=== PATIENT | female | born 1970 | race Caucasian/White ===

== ENCOUNTER 2019-09-24 08:11 | Inpatient (IN) | payer MEDICAID ==
[~2019-09-24] VITALS: Ht 170.2 cm; Wt 71.4 kg
[2019-09-24] MEDS ORDERED: normal saline 1000ML IV soln IVB ONE (08:25)
--- NOTE | 2019-09-24 08:35 | NUR ---
PT TO CT
[2019-09-24 08:52] LABS: BASOPHILS # (AUTO) 0.1 X10'3 (0-0.2); BASOPHILS % (AUTO) 0.4 % (0-1); EOSINOPHILS # (AUTO) 0.1 X10'3 (0-0.9); EOSINOPHILS % (AUTO) 0.8 % (0-6); HEMOGLOBIN 12.2 g/dl (12.0-16.0); LYMPHOCYTES # (AUTO) 2.1 X10'3 (1.1-4.8); LYMPHOCYTES % (AUTO) 15.2 % (21-51); MEAN CORPUSCULAR HEMOGLOBIN 27.6 PG (27.0-31.0); MEAN CORPUSCULAR HGB CONC 32.2 g/dL (33.0-36.5); MEAN CORPUSCULAR VOLUME 85.8 FL (78-98); MEAN PLATELET VOLUME 8.6 FL (7.4-10.4); MONOCYTES % (AUTO) 14.4 % (2-12); NEUTROPHILS # (AUTO) 9.3 X10'3 (1.8-7.7); NEUTROPHILS % (AUTO) 69.2 % (42-75); PLATELET COUNT 425 X10'3 (140-440); RED BLOOD COUNT 4.43 X10'6 (4.20-5.60); RED CELL DISTRIBUTION WIDTH 14.8 % (11.5-14.5); WHITE BLOOD COUNT 13.5 X10'3 (4.5-11.0)
[2019-09-24 09:09] LABS: ALANINE AMINOTRANSFERASE 12 U/L (12-78); ALBUMIN/GLOBULIN RATIO 0.4 (1.1-1.5); ALKALINE PHOSPHATASE 238 IU/L (46-116); ANION GAP 16 (8-16); ASPARTATE AMINO TRANSFERASE 10 U/L (10-37); BILIRUBIN,TOTAL 0.6 MG/DL (0.1-1.0); BLOOD UREA NITROGEN 33 MG/DL (7-18); BUN/CREATININE RATIO 23.9 (6.6-38.0); CALCIUM 10.3 MG/DL (8.5-10.1); CHLORIDE 98 MMOL/L (99-107); CREATININE 1.38 MG/DL (0.40-0.90); ETHANOL < 0.010 GM/DL (0.0-0.010); POTASSIUM 4.4 MMOL/L (3.5-5.1); SODIUM 135 MMOL/L (135-145); TOTAL CARBON DIOXIDE 21.5 MMOL/L (24-32); TOTAL PROTEIN 7.7 G/DL (6.4-8.2); TROPONIN I < 0.04 NG/ML (0.0-0.05); eGFR 40 ML/MIN
[2019-09-24 09:12] LABS: CLARITY,URINE CLOUDY (Clear); COLOR,URINE YELLOW (Yellow); GLUCOSE, URINE >=1000 mg/dl (Neg); KETONES,URINE >=80 mg/dl (Neg); LEUKOCYTE ESTERASE ,URINE SMALL (Neg); NITRITES, URINE POSITIVE (Neg); OCCULT BLOOD,URINE MODERATE (Neg); PROTEIN,URINE 30 mg/dl (Neg); UROBILINOGEN,URINE 0.2 E.U/dL (0.2-1.0)
[2019-09-24 09:17] LABS: URINE AMPHETAMINE SCREEN NEGATIVE (Neg); URINE BARBITUATE SCREEN NEGATIVE (Neg); URINE BENZODIAZEPINES SCREEN NEGATIVE (Neg); URINE CANNABINOID SCREEN NEGATIVE (Neg); URINE COCAINE SCREEN NEGATIVE (Neg); URINE METHADONE SCREEN NEGATIVE (Neg); URINE OPIATE SCREEN NEGATIVE (Neg); URINE PHENCYCLIDINE SCREEN NEGATIVE (Neg)
[2019-09-24 09:18] LABS: UA COLLECTION TYPE CLN CATCH MIDSTREAM
[2019-09-24 09:19] LABS: BACTERIA,URINE 2+ /HPF (Neg); SQUAMOUS EPITHELIAL CELL,UR MODERATE /LPF (FEW); WBC,URINE TNTC /HPF (0-4)
[2019-09-24 09:19] LABS: GLUCOSE 484 MG/DL (70-104)
[2019-09-24 09:20] LABS: RBC,URINE 0-2 /HPF (0-2)
[2019-09-24] MEDS ORDERED: CefTRIAXone 2gm/D5W 50ml 50 ML IV ONE (09:30)
[2019-09-24] MEDS ORDERED: magnesium Cl slow-release 64mg tablet PO PRN (10:05)
[2019-09-24] MEDS ORDERED: ondansetron/PF 4mg/2ml inj IV PRN (10:05)
[2019-09-24] MEDS ORDERED: potassium CL 10mEq/100ml bag 100 ML IV PRN ×2 (10:05)
[2019-09-24] MEDS ORDERED: acetaminophen 325mg tablet PO PRN (10:05)
[2019-09-24] MEDS ORDERED: mag hydrox/Alum hydrox/simeth 30ml oral suspension PO PRN (10:05)
[2019-09-24] MEDS ORDERED: potassium Cl 20 mEq SR tablet PO PRN ×2 (10:05)
[2019-09-24] MEDS ORDERED: magnesium 2GM in 50ml NS 50 ML IV PRN (10:05)
[2019-09-24] MEDS ORDERED: magnesium 4gm in 100ml NS 100 ML IV PRN (10:05)
[2019-09-24] MEDS: normal saline 1000ml 1,000 ML IV SCH ×2 (10:33→22:27)
[2019-09-24 10:40] LABS: TOTAL CELLS COUNTED 100
[2019-09-24 10:43] LABS: PLATELET ESTIMATE NORMAL
[2019-09-24 10:44] LABS: TOXIC GRANULATION 1+; TOXIC VACUOLATION FEW
--- NOTE | 2019-09-24 10:49 | NUR ---
Patient in room ED 9. I have received report from Chantel and had the opportunity to ask questions and assume patient care.
[2019-09-24] MEDS ORDERED: BRIM5DRO2 RIGHTEYE (11:00)
[2019-09-24] MEDS ORDERED: PIL2OS RIGHTEYE (11:00)
[2019-09-24] MEDS ORDERED: CYCL-1 PO (11:00)
[2019-09-24] MEDS ORDERED: PRED5DRO23 RIGHTEYE (11:00)
[2019-09-24] MEDS ORDERED: METF-950 PO (11:00)
[2019-09-24] MEDS ORDERED: FLUT16SP26 NS (11:00)
[2019-09-24] MEDS ORDERED: FEXO-62 PO (11:00)
[2019-09-24] MEDS ORDERED: GLIP5TAB13 PO (11:00)
[2019-09-24 11:20] VITALS: BP 156/87
--- NOTE | 2019-09-24 12:25 | NUR ---
Salty [id number] Re: Collette Noel Blood sugar 447 can we start hyperglycemic protocol?
[2019-09-24] MEDS ORDERED: dextrose 50%-water 50ml dispensing syringe IV PRN ×2 (12:45)
[2019-09-24] MEDS ORDERED: glucagon, human recombinant 1mg kit SUBCUT PRN (12:45)
[2019-09-24] MEDS ORDERED: insulin regular, human U-100 3ml vial - multi-dose SQ SCH (12:45)
[2019-09-24] MEDS ORDERED: MESSAGE TO PHARMACY PO ONE (12:45)
[2019-09-24] MEDS ORDERED: dextrose ORAL solution 15 GM/59 ML bottle PO PRN ×2 (12:45)
[2019-09-24 13:19] LABS: HEMOGLOBIN A1C 12.9 % (4.5-6.2)
[2019-09-24] MEDS: insulin Lispro (HumaLOG) vial - multi-dose SQ SCH ×3 (13:58→21:26)
[2019-09-24 18:00] VITALS: BP 155/81
--- NOTE | 2019-09-24 18:20 | NUR ---
Problems reprioritized. Patient report given, questions answered & plan of care reviewed with Camryn.
--- NOTE | 2019-09-24 18:21 | NUR ---
Patient in room [facility] 357. I have received report from Salty METZGER and had the opportunity to ask questions and assume patient care.
[2019-09-24] MEDS: K and/or MAG REPLACEMENT MC SCH (20:00)
--- NOTE | 2019-09-24 20:42 | NUR ---
Patient very concerned about her pink wallet. Went thru patients belongings with patient and no pink wallet. Blue wallet with $16 in pierre, a debit card, ID and a [employer] card. She said she takes this wallet with her to [employer] when she shops. Patient very confused at the moment.
[2019-09-24 20:59] VITALS: BP_SYST 111; BP_SYST 155; BP_SYST 159; BP_DIAS 66; BP_DIAS 79; BP_DIAS 81
[2019-09-24] MEDS ORDERED: insulin glargine (Lantus) pen - multi-dose SQ SCH (21:00)
[2019-09-24] MEDS: ibuprofen 200mg tablet PO PRN (22:27)
[2019-09-25] VITALS: BP 141/74
--- NOTE | 2019-09-25 01:11 | NUR ---
Patient says she is type 2 DM not type 1. Patient takes metformin at home she states.
--- NOTE | 2019-09-25 01:30 | NUR ---
Called MD due to blood sugar 415. No new orders at this time.
[2019-09-25 06:06] LABS: BASOPHILS # (AUTO) 0.1 X10'3 (0-0.2); BASOPHILS % (AUTO) 0.5 % (0-1); EOSINOPHILS # (AUTO) 0.2 X10'3 (0-0.9); EOSINOPHILS % (AUTO) 2.1 % (0-6); HEMATOCRIT 34.8 % (35.0-45.0); HEMOGLOBIN 11.2 g/dl (12.0-16.0); LYMPHOCYTES # (AUTO) 2.6 X10'3 (1.1-4.8); LYMPHOCYTES % (AUTO) 22.6 % (21-51); MEAN CORPUSCULAR HEMOGLOBIN 27.8 PG (27.0-31.0); MEAN CORPUSCULAR HGB CONC 32.3 g/dL (33.0-36.5); MEAN CORPUSCULAR VOLUME 86.1 FL (78-98); MEAN PLATELET VOLUME 8.6 FL (7.4-10.4); MONOCYTES # (AUTO) 2.2 X10'3 (0-0.9); MONOCYTES % (AUTO) 18.8 % (2-12); NEUTROPHILS # (AUTO) 6.4 X10'3 (1.8-7.7); PLATELET COUNT 344 X10'3 (140-440); RED BLOOD COUNT 4.04 X10'6 (4.20-5.60); RED CELL DISTRIBUTION WIDTH 14.5 % (11.5-14.5); WHITE BLOOD COUNT 11.5 X10'3 (4.5-11.0)
--- NOTE | 2019-09-25 06:16 | NUR ---
Problems reprioritized. Patient report given, questions answered & plan of care reviewed with Kyleigh METZGER.
[2019-09-25 06:26] LABS: ALBUMIN 1.7 G/DL (3.4-5.0); ANION GAP 10 (8-16); BLOOD UREA NITROGEN 27 MG/DL (7-18); BUN/CREATININE RATIO 23.5 (6.6-38.0); CHLORIDE 101 MMOL/L (99-107); CREATININE 1.15 MG/DL (0.40-0.90); GLUCOSE 424 MG/DL (70-104); MAGNESIUM 1.6 MG/DL (1.5-2.4); POTASSIUM 3.8 MMOL/L (3.5-5.1); SODIUM 135 MMOL/L (135-145); TOTAL CARBON DIOXIDE 24.3 MMOL/L (24-32); eGFR 50 ML/MIN
--- NOTE | 2019-09-25 06:33 | NUR ---
Patient in room [facility] 357. I have received report from Camryn METZGER and had the opportunity to ask questions and assume patient care.
[2019-09-25 07:00] VITALS: BP 169/85
[2019-09-25] MEDS: ibuprofen 200mg tablet PO PRN (07:33)
[2019-09-25] MEDS: normal saline 1000ml 1,000 ML IV SCH (07:33)
[2019-09-25] MEDS: K and/or MAG REPLACEMENT MC SCH (08:00)
[2019-09-25] MEDS ORDERED: CefTRIAXone/D5W-Rocephin 1gm 50 ML IV SCH (08:00)
--- NOTE | 2019-09-25 08:12 | NUR ---
PAGER ID: [phone] MESSAGE: Dr. Thomas patient Collette Noel blood sugar is 411, I will give her insulin, also med-rec needs to be done thank you. Kyleigh [phone] surgical
[2019-09-25] MEDS: insulin Lispro (HumaLOG) vial - multi-dose SQ SCH ×2 (08:22→13:33)
[2019-09-25] MEDS ORDERED: cyclobenzaprine 10mg tablet PO PRN (08:50)
[2019-09-25] MEDS ORDERED: INDO50CA96 PO (09:16)
[2019-09-25 10:00] VITALS: BP 133/67
[2019-09-25] MEDS ORDERED: brimonidine 0.2% 5 ML ophthalmic drops RIGHTEYE SCH (10:00)
[2019-09-25] MEDS ORDERED: timolol 0.5% ophthalmic solution 5ml bottle RIGHTEYE SCH (10:00)
[2019-09-25] MEDS ORDERED: prednisoLONE acetate 1% ophth susp 5ml RIGHTEYE SCH (10:00)
--- NOTE | 2019-09-25 11:22 | NUR ---
DM consult: Pt with T2DM, current A1c is 12.9%. Per RN notes pt states she takes Metformin. Blood sugars in the 400s since admission, currently on hyperglycemic protocol and CHO controlled diet. Per physical assessment pt A/O x 4 however confused and forgetful about what topic she is discussing. Pt would benefit from DM education once pt more alert and oriented. Addendum: 09/25/19 at [address] Amended: Links added.
--- NOTE | 2019-09-25 11:23 | NUR ---
DM consult: Pt with T2DM, current A1c is 12.9%. Per RN notes pt states she takes Metformin. Blood sugars in the 400s since admission, currently on hyperglycemic protocol and CHO controlled diet. Per physical assessment pt A/O x 4 however confused and forgetful about what topic she is discussing. Pt would benefit from DM education once pt more alert and oriented. Will continue to follow. Addendum: 09/25/19 at [address] Amended: Links added.
[2019-09-25 11:49] VITALS: BP_SYST 133; BP_SYST 140; BP_DIAS 53; BP_DIAS 58; BP_DIAS 67
[2019-09-25] MEDS ORDERED: METF-950 PO (12:48)
[2019-09-25] MEDS ORDERED: AMOX-419 PO (12:49)
--- NOTE | 2019-09-25 16:45 | NUR ---
Patient discharged at this time with [facility] transportation. She had a walker delivered by [email or web address]. She said she was missing her wallet and glasses but these could be at her house because she was found down in urine. Meds e-scripted to [facility] placer
[2019-09-25] MEDS ORDERED: lactobacillus rhamnosus 10,000 MMU CELLS/CAPSULE PO SCH (20:00)
[2019-09-25] MEDS ORDERED: non-formulary drug (Brimonidine Tartrate/Timolol (Combigan Eye Drops) 1 DROP) RIGHTEYE SCH (20:00)
[2019-09-25] MEDS ORDERED: pilocarpine 2% ophthalmic drops 15ml RIGHTEYE SCH (21:00)
--- NOTE | 2019-09-26 09:42 | NUR ---
F/u for DM consult: Pt discharged prior to RD being available for bedside visit. Written DM education with RD contact information mailed to patient's home address found in EMR. Addendum: 09/26/19 at [address] Amended: Links added.
== END 2019-09-25 16:50 | disposition home health service (06) | DRG 469 ==
LOC: ER 08:11 → ED HOLD 10:01 → SUR 3N 11:01
PROVIDERS: ADMIT Internal Medicine; ATTEND Internal Medicine
DX: N17.9 Acute kidney failure, unspecified (principal); E11.65 Type 2 diabetes mellitus with hyperglycemia; N39.0 Urinary tract infection, site not specified; W01.0XXA Fall on same level from slipping, tripping and stumbling without subsequent striking against object, initial encounter; G89.29 Other chronic pain; E86.0 Dehydration; R29.6 Repeated falls; S80.211A Abrasion, right knee, initial encounter; M54.2 Cervicalgia; M54.5 Low back pain; M54.6 Pain in thoracic spine; Y93.89 Activity, other specified; Y92.090 Kitchen in other non-institutional residence as the place of occurrence of the external cause; Y99.8 Other external cause status; Z88.2 Allergy status to sulfonamides; Z79.899 Other long term (current) drug therapy
CPT/HCPCS: 36415; 70450; 71045; 80048; 80053; 80305; 80320; 81001; 82140; 82948; 83036; 83735; 84484; 85025; 87077; 87081; 87088; 87186; 93005; 96361; 96374; 97112; 97116; 97161; 97530; 99285; G0378; J0696; J1815; J7030